=== PATIENT | female | born 1950 | race Caucasian/White ===

== ENCOUNTER 2022-01-22 01:45 | Inpatient (IN) | payer MEDICARE, OTHER ==
[~2022-01-22] VITALS: Ht 167.6 cm; Wt 52.2 kg
[2022-01-22] MEDS ORDERED: ASPI81TA31 PO (02:03)
[2022-01-22] MEDS ORDERED: TRAZ-182 PO (02:03)
[2022-01-22] MEDS ORDERED: LOSA25TA27 PO (02:03)
[2022-01-22] MEDS ORDERED: ACET-2154 PO (02:03)
[2022-01-22] MEDS ORDERED: OXCA150T5 PO (02:03)
[2022-01-22] MEDS ORDERED: DOCU100C36 PO (02:03)
[2022-01-22] MEDS ORDERED: SIMV10TA98 PO (02:03)
[2022-01-22] MEDS ORDERED: LEVO100T10 PO (02:03)
[2022-01-22] MEDS ORDERED: MAGN400O6 PO (02:03)
[2022-01-22] MEDS ORDERED: CARB1TAB21 PO ×2 (02:03)
[2022-01-22] MEDS ORDERED: CRAN450T9 PO (02:03)
[2022-01-22] MEDS ORDERED: IV NORMAL SALINE 500 ML BAG IV ONE (02:15)
[2022-01-22 02:53] LABS: ALANINE AMINOTRANSFERASE 17 U/L (14-59); ALKALINE PHOSPHATASE 79 U/L (50-136); ASPARTATE AMINOTRANSFERASE 13 U/L (15-37); BILIRUBIN,DIRECT 0.2 mg/dL (0.0-0.2); BILIRUBIN,TOTAL 0.8 mg/dL (0.2-1.0); CARBON DIOXIDE 34 mmol/L (21-32); CHLORIDE 100 mmol/L (98-107); CREATININE 1.2 mg/dL (0.6-1.3); GLUCOSE 115 mg/dL (74-106); LIPASE 43 U/L (73-393); TOTAL PROTEIN, SERUM 5.8 g/dL (6.4-8.2); UREA NITROGEN, BLOOD 17 mg/dL (7-18)
[2022-01-22 02:54] LABS: POTASSIUM 2.8 mmol/L (3.5-5.1)
[2022-01-22 02:55] LABS: HEMATOCRIT 34.6 % (31.2-41.9); MEAN CORPUSCULAR HEMOGLOBIN 33.9 uug (24.7-32.8); MEAN CORPUSCULAR VOLUME 94.3 fL (75.5-95.3); PLATELET COUNT (AUTO) 225 K/uL (179-408)
[2022-01-22] MEDS ORDERED: PANTOPRAZOLE SODIUM 40 MG VIAL IV SCH (03:15)
[2022-01-22] MEDS ORDERED: IV D5W-0.45% NS +20 KCL 1,000 ML IV ONE ×2 (03:15→03:19)
[2022-01-22] MEDS ORDERED: ONDANSETRON 4 MG/2 ML VIAL IV PRN (03:15)
[2022-01-22] MEDS ORDERED: POTASSIUM CHLORIDE 20 MEQ TAB.PRT.SR PO ONE (03:15)
[2022-01-22] MEDS ORDERED: IV LACTATED RINGERS SOLUTION 1,000 ML IV PRN (03:15)
[2022-01-22] MEDS ORDERED: MAGNESIUM HYDROXIDE 30 ML LIQUID UDC PO PRN (03:15)
[2022-01-22] MEDS ORDERED: ACETAMINOPHEN 325 MG TABLET PO PRN (03:15)
[2022-01-22] MEDS ORDERED: REMEDY ESSENTIAL ZINC PASTE 113 GM TP PRN (03:15)
[2022-01-22] MEDS ORDERED: PANTOPRAZOLE SODIUM IV 80 MG in IV DEXTROSE 5% 100 ML IV ONE (03:30)
--- NOTE | 2022-01-22 03:48 | NUR ---
Called M/S to endorse RN not available at this time, will call back after 15 mins.
[2022-01-22] MEDS ORDERED: IOHEXOL 300MG/ML 100 ML INFUS..BTL ONE (04:26)
[2022-01-22] MEDS ORDERED: IV NORMAL SALINE 250 ML IV ONE (04:27)
[2022-01-22] MEDS ORDERED: SWABABLE VALVE TRANSFER SET EA MC ONE (04:27)
--- NOTE | 2022-01-22 04:44 | NUR ---
Endorsed to ANGEL Lenz, pt. will be transferred to [facility] Rm# [id number], CT of ABD and Pelvis in process.
--- NOTE | 2022-01-22 05:44 | NUR ---
Patient admitted from ER via stretcher. Patient is pleasantly confused. Oriented to self. Skin intact. room air. Bilateral soft wrist restraints on for patients safety, patient pulling at lines. Saline lock in right wrist. patient placed on telemetry. D5 1/2 ns with 20 meq kcl infusing at 250 cc per hour. Patient incontinent of urine. No BM noted at present. Side rails up x3, bed in low position.
[2022-01-22 06:09] VITALS: BP 101/46
--- NOTE | 2022-01-22 08:00 | NUR ---
Awake, confused, on bilateral soft wrist restraints, monitored per protocol. IVF infusing. NPO maintained
[2022-01-22] MEDS: METRONIDAZOLE 500 MG/NS 100ML 500 MG in PREMIXED 1 EACH IV SCH ×3 (09:24→22:28)
[2022-01-22] MEDS: POTASSIUM CHLORIDE 50 ML IV SCH ×4 (09:45→12:47)
[2022-01-22] MEDS: CIPROFLOXACIN IV 400 MG in PREMIXED 1 EACH IV SCH ×2 (09:59→20:35)
--- NOTE | 2022-01-22 10:00 | NUR ---
Started another saline lock. KCL 40 MEQ IV, started
[2022-01-22 11:50] VITALS: BP 109/69
[2022-01-22] MEDS: PANTOPRAZOLE SODIUM 40 MG VIAL IV SCH ×2 (12:13→20:35)
--- NOTE | 2022-01-22 13:01 | NUR ---
Started on pureed, nectar thick diet, assisted with meal
[2022-01-22] MEDS: IV NS 1000 ML 1,000 ML IV SCH (13:54)
[2022-01-22] MEDS: OXCARBAZEPINE 150 MG TABLET PO SCH ×2 (13:54→16:40)
[2022-01-22] MEDS: CARBIDOPA/LEVODOPA 25-100MG TABLET PO SCH ×3 (13:54→20:35)
[2022-01-22 16:28] VITALS: BP 101/48
--- NOTE | 2022-01-22 17:54 | NUR ---
Assisted with meal, with fair appetite. Incontinence care. Repositioned in bed comfortably. Afebrile.
[2022-01-22 20:29] VITALS: BP 94/47
[2022-01-22] MEDS: SIMVASTATIN 10 MG TABLET PO SCH (20:35)
[2022-01-22] MEDS: TRAZODONE 50 MG TABLET PO SCH (20:35)
[2022-01-23] MEDS: IV NS 1000 ML 1,000 ML IV SCH ×2 (02:32→15:35)
[2022-01-23 04:22] VITALS: BP 137/61
[2022-01-23] MEDS: METRONIDAZOLE 500 MG/NS 100ML 500 MG in PREMIXED 1 EACH IV SCH ×3 (06:09→22:22)
[2022-01-23] MEDS: LEVOTHYROXINE SODIUM 100 MCG TABLET PO SCH (07:06)
[2022-01-23 07:28] LABS: HEMATOCRIT 34.9 % (31.2-41.9); MEAN CORPUSCULAR HEMOGLOBIN 33.9 uug (24.7-32.8); MEAN CORPUSCULAR VOLUME 95.2 fL (75.5-95.3); PLATELET COUNT (AUTO) 201 K/uL (179-408)
[2022-01-23 07:56] LABS: CREATININE 0.8 mg/dL (0.6-1.3); MAGNESIUM 1.5 mg/dL (1.8-2.4); PHOSPHOROUS 2.6 mg/dL (2.5-4.9); POTASSIUM 2.9 mmol/L (3.5-5.1)
[2022-01-23] MEDS ORDERED: GOLYTELY 4000 ML BOTTLE PO ONE (09:00)
[2022-01-23] MEDS: CIPROFLOXACIN IV 400 MG in PREMIXED 1 EACH IV SCH ×2 (10:04→22:20)
[2022-01-23] MEDS: OXCARBAZEPINE 150 MG TABLET PO SCH ×3 (10:04→17:24)
[2022-01-23] MEDS: MAGNESIUM SULFATE/D5W 100 ML IV SCH ×2 (10:09→11:15)
[2022-01-23] MEDS: PANTOPRAZOLE SODIUM 40 MG VIAL IV SCH ×2 (10:09→22:21)
[2022-01-23] MEDS: POTASSIUM CHLORIDE 20 MEQ TAB.PRT.SR PO SCH ×2 (10:09→13:58)
[2022-01-23] MEDS: DOCUSATE SODIUM 100 MG CAPSULE PO SCH (10:09)
[2022-01-23] MEDS: LOSARTAN POTASSIUM 25 MG TABLET PO SCH (10:10)
[2022-01-23] MEDS: CARBIDOPA/LEVODOPA 25-100MG TABLET PO SCH ×4 (10:11→22:21)
[2022-01-23 12:00] VITALS: BP 141/71
[2022-01-23 17:03] VITALS: BP 115/61
[2022-01-23 20:45] VITALS: BP 107/55
[2022-01-23] MEDS: TRAZODONE 50 MG TABLET PO SCH (22:21)
[2022-01-23] MEDS: SIMVASTATIN 10 MG TABLET PO SCH (22:21)
[2022-01-24 04:24] VITALS: BP 136/69
[2022-01-24] MEDS: IV NS 1000 ML 1,000 ML IV SCH ×2 (04:45→21:04)
[2022-01-24] MEDS: METRONIDAZOLE 500 MG/NS 100ML 500 MG in PREMIXED 1 EACH IV SCH ×3 (06:31→21:06)
[2022-01-24] MEDS: LEVOTHYROXINE SODIUM 100 MCG TABLET PO SCH (06:34)
--- NOTE | 2022-01-24 07:30 | NUR ---
Sleeping, appears comfortable. IVF infusing. With bilateral soft wrist restraints, will monitor per protocol.
[2022-01-24 07:54] LABS: HEMATOCRIT 33.1 % (31.2-41.9); MEAN CORPUSCULAR HEMOGLOBIN 34.1 uug (24.7-32.8); MEAN CORPUSCULAR VOLUME 94.8 fL (75.5-95.3); PLATELET COUNT (AUTO) 191 K/uL (179-408)
[2022-01-24 08:02] LABS: CREATININE 0.7 mg/dL (0.6-1.3); MAGNESIUM 1.5 mg/dL (1.8-2.4); PHOSPHOROUS 2.6 mg/dL (2.5-4.9)
--- NOTE | 2022-01-24 08:22 | NUR ---
SHIFT NOTE: RECEIVED PT ALERT AND ORIENTED X1 PT HAS BILATERAL WRIST RESTRAINTS NO SIGNS OF REDNESS OR SWELLING FROM THE AREA PT MONITORED EVERY TWO HOURS RESTRAINTS REMOVED AND REAPPLIED. FLUIDS OFFERED NO SIGNS OF RESPIRATORY DISTRESSED NOTED. MEDICATION GIVEN ORDERED NO SIGNS OF ADVERSE REACTION. PT MONITORED THROUGHOUT SHIFT FOR FALLS AND SAFETY. ENDORSED TO AM NURSE.
[2022-01-24] MEDS: POTASSIUM CHLORIDE 20 MEQ TAB.PRT.SR PO SCH ×2 (09:10→14:01)
[2022-01-24] MEDS: CIPROFLOXACIN IV 400 MG in PREMIXED 1 EACH IV SCH ×2 (09:10→21:04)
[2022-01-24] MEDS: PANTOPRAZOLE SODIUM 40 MG VIAL IV SCH ×2 (09:11→21:06)
[2022-01-24] MEDS: DOCUSATE SODIUM 100 MG CAPSULE PO SCH (09:11)
[2022-01-24] MEDS: CARBIDOPA/LEVODOPA 25-100MG TABLET PO SCH ×4 (09:11→21:12)
[2022-01-24] MEDS: OXCARBAZEPINE 150 MG TABLET PO SCH ×3 (09:20→18:42)
[2022-01-24] MEDS: LOSARTAN POTASSIUM 25 MG TABLET PO SCH (09:29)
--- NOTE | 2022-01-24 11:00 | NUR ---
Infiltrated IV site. Saline lock restarted to left hand x 2. K 3.0, KCL IV given as ordered. MG 1.5, Magnesium IV given as ordered.
[2022-01-24] MEDS: MAGNESIUM SULFATE/D5W 100 ML IV SCH ×2 (11:30→11:31)
[2022-01-24 11:33] VITALS: BP 91/47
[2022-01-24] MEDS: POTASSIUM CHLORIDE 50 ML IV SCH ×4 (12:42→16:04)
--- NOTE | 2022-01-24 14:00 | NUR ---
Repositioned in bed comfortably.
[2022-01-24 15:58] VITALS: BP 130/70
--- NOTE | 2022-01-24 18:00 | NUR ---
Assisted with meal. Family at bedside. Incontinence care done. Repositioned in bed comfortably
[2022-01-24 20:00] VITALS: BP 123/69
[2022-01-24] MEDS: SIMVASTATIN 10 MG TABLET PO SCH (21:06)
[2022-01-24] MEDS: TRAZODONE 50 MG TABLET PO SCH (21:06)
[2022-01-25 04:00] VITALS: BP 134/73
[2022-01-25] MEDS: METRONIDAZOLE 500 MG/NS 100ML 500 MG in PREMIXED 1 EACH IV SCH ×3 (05:57→22:44)
[2022-01-25] MEDS: LEVOTHYROXINE SODIUM 100 MCG TABLET PO SCH (06:13)
[2022-01-25 07:23] LABS: HEMATOCRIT 35.2 % (31.2-41.9); MEAN CORPUSCULAR HEMOGLOBIN 34.4 uug (24.7-32.8); PLATELET COUNT (AUTO) 193 K/uL (179-408)
[2022-01-25 07:36] LABS: CARBON DIOXIDE 31 mmol/L (21-32); CHLORIDE 103 mmol/L (98-107); CREATININE 0.8 mg/dL (0.6-1.3); GLUCOSE 105 mg/dL (74-106); MAGNESIUM 1.7 mg/dL (1.8-2.4); POTASSIUM 3.8 mmol/L (3.5-5.1); UREA NITROGEN, BLOOD 3 mg/dL (7-18)
[2022-01-25] MEDS: IV NS 1000 ML 1,000 ML IV SCH ×2 (07:55→22:28)
[2022-01-25] MEDS: CIPROFLOXACIN IV 400 MG in PREMIXED 1 EACH IV SCH ×2 (09:05→22:36)
[2022-01-25] MEDS: DOCUSATE SODIUM 100 MG CAPSULE PO SCH (09:06)
[2022-01-25] MEDS: PANTOPRAZOLE SODIUM 40 MG VIAL IV SCH ×2 (09:06→22:25)
[2022-01-25] MEDS: LOSARTAN POTASSIUM 25 MG TABLET PO SCH (09:06)
[2022-01-25] MEDS: OXCARBAZEPINE 150 MG TABLET PO SCH ×3 (09:07→16:36)
[2022-01-25] MEDS: CARBIDOPA/LEVODOPA 25-100MG TABLET PO SCH ×4 (09:07→22:27)
[2022-01-25] MEDS: PROTEIN SUPPLEMENT (PROSTAT) 30 ML LIQUID PO SCH (11:28)
[2022-01-25] MEDS ORDERED: MAGNESIUM OXIDE 400 MG TABLET PO ONE (12:30)
[2022-01-25 15:50] VITALS: BP 118/62
[2022-01-25 18:16] LABS: NEUTROPHILS % (MANUAL) 0 % (42-75)
[2022-01-25] MEDS: SIMVASTATIN 10 MG TABLET PO SCH (22:27)
[2022-01-25] MEDS: TRAZODONE 50 MG TABLET PO SCH (22:27)
[2022-01-25 22:35] VITALS: BP 147/80
[2022-01-26] MEDS: METRONIDAZOLE 500 MG/NS 100ML 500 MG in PREMIXED 1 EACH IV SCH (05:14)
[2022-01-26 06:14] VITALS: BP 142/70
[2022-01-26 07:28] LABS: CREATININE 0.6 mg/dL (0.6-1.3); MAGNESIUM 1.7 mg/dL (1.8-2.4); PHOSPHOROUS 3.5 mg/dL (2.5-4.9); POTASSIUM 3.3 mmol/L (3.5-5.1)
[2022-01-26] MEDS: PROTEIN SUPPLEMENT (PROSTAT) 30 ML LIQUID PO SCH (08:00)
[2022-01-26 08:16] LABS: HEMATOCRIT 40.8 % (31.2-41.9); MEAN CORPUSCULAR HEMOGLOBIN 33.9 uug (24.7-32.8); MEAN CORPUSCULAR VOLUME 98.1 fL (75.5-95.3); PLATELET COUNT (AUTO) 227 K/uL (179-408)
[2022-01-26] MEDS: PANTOPRAZOLE SODIUM 40 MG VIAL IV SCH (09:49)
[2022-01-26] MEDS: DOCUSATE SODIUM 100 MG CAPSULE PO SCH (09:49)
[2022-01-26] MEDS: OXCARBAZEPINE 150 MG TABLET PO SCH ×2 (09:49→14:45)
[2022-01-26] MEDS: LOSARTAN POTASSIUM 25 MG TABLET PO SCH (09:54)
[2022-01-26] MEDS ORDERED: CIPR-262 PO (10:07)
[2022-01-26] MEDS ORDERED: METR500T PO (10:07)
[2022-01-26] MEDS: CARBIDOPA/LEVODOPA 25-100MG TABLET PO SCH ×2 (10:12→14:46)
[2022-01-26] MEDS: LEVOTHYROXINE SODIUM 100 MCG TABLET PO SCH (10:13)
[2022-01-26] MEDS ORDERED: MAGNESIUM OXIDE 400 MG TABLET PO ONE (10:15)
[2022-01-26] MEDS: CIPROFLOXACIN IV 400 MG in PREMIXED 1 EACH IV SCH (10:15)
[2022-01-26] MEDS ORDERED: POTASSIUM CHLORIDE 20 MEQ TAB.PRT.SR PO ONE (10:15)
[2022-01-26] MEDS: IV NS 1000 ML 1,000 ML IV SCH (10:42)
[2022-01-26 12:14] VITALS: BP 106/63
[2022-01-26] MEDS ORDERED: METRONIDAZOLE 500 MG TABLET PO SCH (14:00)
[2022-01-26 16:17] VITALS: BP 130/67
--- NOTE | 2022-01-26 17:00 | NUR ---
Patient got picked up by [facility]. No pain, no distress noted on the patient.
[2022-01-26] MEDS ORDERED: CIPROFLOXACIN HCL 250 MG TABLET PO SCH (21:00)
== END 2022-01-26 17:30 | DRG 393 ==
LOC: ER 01:45 → TELE3 03:12 → MEDSURG3 11:25
PROVIDERS: ADMIT Internal Medicine; ATTEND Nurse Practitioner Acute Care
DX: K62.89 Other specified diseases of anus and rectum (principal); E43 Unspecified severe protein-calorie malnutrition; G93.41 Metabolic encephalopathy; K62.5 Hemorrhage of anus and rectum; Z68.1 Body mass index [BMI] 19.9 or less, adult; D50.0 Iron deficiency anemia secondary to blood loss (chronic); E03.9 Hypothyroidism, unspecified; E78.5 Hyperlipidemia, unspecified; E83.42 Hypomagnesemia; E87.6 Hypokalemia; E88.09 Other disorders of plasma-protein metabolism, not elsewhere classified; G20 Parkinson's disease; F02.80 Dementia in other diseases classified elsewhere, unspecified severity, without behavioral disturbance, psychotic disturbance, mood disturbance, and anxiety; F29 Unspecified psychosis not due to a substance or known physiological condition; I10 Essential (primary) hypertension; K59.00 Constipation, unspecified; Z79.82 Long term (current) use of aspirin; Z85.841 Personal history of malignant neoplasm of brain; N30.90 Cystitis, unspecified without hematuria; Z20.822 Contact with and (suspected) exposure to COVID-19
CPT/HCPCS: 36415; 70030-TC; 71045; 83690; 83735; 84100; 84132; 85025; 85730; 86850; 86900; 86901; 93005; A4663; C9113; G0378; J0744; J3475; J3480; J3490; J7040; J7120; Q9967